=== PATIENT | female | born 1960 | race Caucasian/White ===

== ENCOUNTER → 2017-07-26 | Outpatient (CLI) | payer BC ==
[2016-12-26 11:10] VITALS: BP 122/77
[~2017-07-26] MED LIST: ALBU8.5H8 INH; CYCL-331 PO; CYCL5TAB PO; GABA-586 PO; HYDR-971 PO; IBUP200T43 PO; IBUP800T19 PO; PRED50TA PO
--- NOTE | 2017-07-26 11:16 | RAD ---
Chest, 2 views, 07/26/2017: History: Dry cough, smoking history Comparison is made to a study from 12/26/2016. The heart size and pulmonary vascularity are normal. There is a calcified granuloma in the right base. No pulmonary infiltrate is seen. There is no evidence of pleural fluid. IMPRESSION: No acute cardiopulmonary abnormality is detected.
== END | disposition home or self-care (01) ==
LOC: DXRADRC 11:03
PROVIDERS: ATTEND Nurse Practitioner Family
DX: J84.10 Pulmonary fibrosis, unspecified (principal); F17.200 Nicotine dependence, unspecified, uncomplicated
CPT/HCPCS: 71020

== ENCOUNTER → 2018-10-24 | Outpatient (CLI) | payer BC ==
[2016-12-26 11:10] VITALS: BP 122/77
[~2018-10-24] MED LIST changes: +ALBU2.5V8 INH; -ALBU8.5H8 INH; +HYDR-3165 PO; -HYDR-971 PO; -IBUP200T43 PO; +IBUP200T44 PO
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
== END | disposition home or self-care (01) ==
LOC: PMG 12:25
PROVIDERS: ATTEND Physician Assistant
DX: M25.571 Pain in right ankle and joints of right foot (principal)
CPT/HCPCS: 73600

== ENCOUNTER → 2018-11-05 | Outpatient (CLI) | payer BC ==
[2016-12-26 11:10] VITALS: BP 122/77
--- NOTE | 2018-11-10 09:44 | RAD ---
DATE: 11/05/2018 11:00 AM EXAM: DIGITAL SCREEN BILAT W/CAD HISTORY: routine screening evaluation. COMPARISON: 11/28/2016 Bilateral full field craniocaudal and mediolateral oblique images were obtained using digital technique. This study was interpreted with the benefit of Computerized Aided Detection (CAD ). Breast Density: The breast parenchyma shows scattered fibroglandular densities. Breast parenchyma level B. FINDINGS: Benign calcifications are present. The parenchymal pattern appears stable. No suspicious masses, microcalcifications or architectural distortion is present to suggest malignancy in either breast. The visualized axillae are unremarkable. IMPRESSION: No mammographic evidence of malignancy. BI-RADS CATEGORY: 2 BENIGN FINDING(S) RECOMMENDED FOLLOW-UP: 12M 12 MONTH FOLLOW-UP Annual screening mammography is recommended, unless clinically indicated sooner based on symptoms or change in physical exam. PQRS compliance statement: Patient information was entered into a reminder system with a target due date 11/05/2019 for the next mammogram. Mammography is a sensitive method for finding small breast cancers, but it does not detect them all and is not a substitute for careful clinical examination. A negative mammogram does not negate a clinically suspicious finding and should not result in delay in biopsying a clinically suspicious abnormality. "Our facility is accredited by the [employer] Mammography Program." MTDD
== END | disposition home or self-care (01) ==
LOC: MAMMO 08:55
PROVIDERS: ATTEND Physician Assistant
DX: Z12.31 Encounter for screening mammogram for malignant neoplasm of breast (principal)
CPT/HCPCS: 77067

== ENCOUNTER → 2018-11-14 | Outpatient (CLI) | payer BC ==
[2016-12-26 11:10] VITALS: BP 122/77
--- NOTE | 2018-11-14 14:00 | RAD ---
EXAM: Chest, 2 views. HISTORY: Emphysema. Cough. Chest pain. COMPARISON: 07/26/2017 FINDINGS: 2 views of chest are obtained. There is no infiltrate, pleural effusion or pneumothorax. The heart is normal in size. There is a stable focal opacity overlying the right upper lobe likely due to pleural-parenchymal scarring. There is a calcified granuloma within the right lower lobe. There is emphysema. IMPRESSION: No acute pulmonary finding Electronically signed by: Rosie Hopkins MD (11/14/2018 1:57 PM) [place] [id number]
== END | disposition home or self-care (01) ==
LOC: PMG 11:03
PROVIDERS: ATTEND Physician Assistant
DX: J43.8 Other emphysema (principal); J84.10 Pulmonary fibrosis, unspecified; R91.8 Other nonspecific abnormal finding of lung field; F17.210 Nicotine dependence, cigarettes, uncomplicated
CPT/HCPCS: 71046

== ENCOUNTER → 2019-07-29 | Outpatient (CLI) | payer BC ==
[2016-12-26 11:10] VITALS: BP 122/77
--- NOTE | 2019-07-29 13:05 | RAD ---
EXAM: Chest, 2 views. HISTORY: CBD. Swelling under both breasts. COMPARISON: 11/14/2018 FINDINGS: 2 views of the chest are obtained. There is no infiltrate, pleural effusion or pneumothorax. The heart is normal in size. There are few calcified granulomas. IMPRESSION: No acute pulmonary finding. Electronically signed by: Rosie Hopkins MD (07/29/2019 1:02 PM) [place] [id number]
== END | disposition home or self-care (01) ==
LOC: PMG 11:21
PROVIDERS: ATTEND Registered Nurse
DX: J44.9 Chronic obstructive pulmonary disease, unspecified (principal); R07.81 Pleurodynia; N64.59 Other signs and symptoms in breast; Z72.0 Tobacco use
CPT/HCPCS: 71046

== ENCOUNTER → 2019-08-31 | Outpatient (CLI) | payer BC ==
[2016-12-26 11:10] VITALS: BP 122/77
--- NOTE | 2019-09-01 13:26 | RAD ---
Supine and upright abdomen. HISTORY: Abdominal pain Supine and upright views were taken of the abdomen. There is no free air on the upright view or abnormal air-fluid levels. Visualized lung bases are clear. Patient's had a cholecystectomy. Stomach is mildly distended. There is not evidence of a small bowel obstruction. There are no abnormal calcifications. There is slight scoliosis. There are multiple phleboliths in the pelvis. IMPRESSION: 1. Mild gastric distention. 2. No bowel obstruction or other acute finding noted in the abdomen or pelvis. Electronically signed by: David Hay MD (09/01/2019 1:23 PM) [id number]
== END | disposition home or self-care (01) ==
LOC: RAD 17:17
PROVIDERS: ATTEND Registered Nurse
DX: K31.89 Other diseases of stomach and duodenum (principal); M41.86 Other forms of scoliosis, lumbar region; I87.8 Other specified disorders of veins; Z90.49 Acquired absence of other specified parts of digestive tract
CPT/HCPCS: 74019

== ENCOUNTER → 2020-06-24 | Outpatient (CLI) | payer OTHER, BC ==
[2016-12-26 11:10] VITALS: BP 122/77
--- NOTE | 2020-06-24 11:45 | RAD ---
EXAMINATION: CHEST PA LATERAL CLINICAL HISTORY: Reason: COUGH / Spl. Instructions: / History: EXAM DATE/TIME: 06/24/2020 12:00 AM COMPARISON: 07/29/2019 FINDINGS: Lines, tubes, and devices: None. Cardiomediastinal silhouette: Within normal limits. Lungs and pleura: No evidence of focal airspace consolidation or pleural effusion. Pulmonary vasculature unremarkable. Bones and soft tissues: Degenerative changes of the thoracic spine. IMPRESSION: No evidence of acute cardiopulmonary abnormality or significant interval change. Electronically signed by: Jcarlos Simon DO (06/24/2020 11:43 AM) [id number]
== END | disposition home or self-care (01) ==
LOC: DXRAD 10:00
PROVIDERS: ATTEND Family Medicine
DX: J44.9 Chronic obstructive pulmonary disease, unspecified (principal); M47.814 Spondylosis without myelopathy or radiculopathy, thoracic region
CPT/HCPCS: 71046

== ENCOUNTER → 2020-09-13 | Outpatient (CLI) | payer BC ==
[2016-12-26 11:10] VITALS: BP 122/77
[~2020-09-13] MED LIST changes: +REGADENOSON 0.4 MG/5 ML DISP.SYRIN. IV ONE
--- NOTE | 2020-09-13 12:10 | RAD ---
MR#: [id number] Date of Study: 09/13/2020 Ordering Physician: LUCERO CEJA, Referring Physician: PETRA MENDOZA Tech: RT Siri MorenoR) (N) APPROVED REPORT Test Type: Pharmacological Stress Nurse/Tech: RT Tiffanie (Marco A) (N) Test Indications: chest pain and left arm numbness Cardiac History: none Medications: see EHR Medical History: Asthma, COPD, smoker 45 years Resting ECG: SR/ST Resting Heart Rate: 78 bpm Resting Blood Pressure: 135/79mmHg Pretest Chest Pain: None Nurse/Tech Notes Consent: The procedure was explained to the patient in lay terms. Informed consent was witnessed. Herberth eout was entered into [employer]. History and Stress Test performed by RT Leobardo Moreno) (N) Pharm. Details Pharmacologic stress testing was performed using 0.4mg per 5ml of regadenoson given intravenously ove r 7-10 seconds. POST EXERCISE Reason for Termination: Infusion complete Max HR: 114 bpm Max Blood Pressure: 156/83mmHg INTERPRETATION Stress EKG Conclusion: No acute changes were noted. Imaging Protocol IMAGE PROTOCOL: Rest Tc-99m/stress Tc-99m 1 day Rest: Stress: Viability: Radiopharm.Tc99m [id number] Sestamibi Dose10.6mCi 32.5mCi Duration 15min. 10min. Img Date 09/13/2020 09/13/2020 Inj-Img [id number]. 60min. Rest Admin Site:IV - Right AntecubitalAdministrator: RT Tiffanie (Marco A)(N) Stress Admin Site: IV - Right AntecubitalAdministrator: RT Leobardo Moreno)(N) STRESS DATA End Diast. Vol.66.0mlAv. Heart Rate90.0bpm End Syst. Vol.7.0mlCO Index BSA0.0L/min Myocardial Ahlp499.0gEject. Ykzzmxra30.0% Stress Rates Pk. Fill Rate4.83EDV/secLVtime Pk. Fill 90.12msec Pk. Empty Rate4.70ESV/secLVtime Pk. Jpvma647.47msec 1/3 Pk. Fill3.03EDV/sec Stress Scores Regional WT1.00Summed WT6.00 Regional WM0.00Summed WM0.00 The rest and stress images show normal perfusion, normal contraction and thickening. LV Perf. Quant 17 Seg. SSS0.00 17 Seg. SRS3.00 17 Seg. SDS0.00 Stress Defect Extent (% LAD)0.00Rest Defect Extent (% LAD)8.10Rev. Defect Extent (% LAD)0.00 Stress Defect Extent (% LCX) 0.00Rest Defect Extent (% LCX)0.00Rev. Defect Extent (% LCX)0.00 Stress Defect Extent (% RCA)0.00Rest Defect Extent (% RCA)0.00Rev. Defect Extent (% RCA)0.00 Stress Defect Extent (% HORTENCIA)0.00Rest Defect Extent (% HORTENCIA)4.30Rev. Defect Extent (% HORTENCIA)0.00 Other Information Quality:Average Risk Assessment: Low Risk Conclusion 1. No evidence of EKG changes with stress testing. 2. Normal perfusion at stress/rest. 3. Low risk study. 4. EF > 60%. Signed by : Silverio Kay, Electronically Approved : 09/13/2020 12:10:03
== END ==
LOC: NM 07:57
PROVIDERS: ATTEND Internal Medicine Cardiovascular Disease
DX: R07.9 Chest pain, unspecified (principal)
CPT/HCPCS: 78452; 93017; A9500; J2785

== ENCOUNTER 2021-01-10 10:19 | Emergency (ER) | payer BC, OTHER ==
[~2021-01-10] VITALS: Ht 162.6 cm; Wt 74.8 kg
[~2021-01-10 10:19] MED LIST changes: -REGADENOSON 0.4 MG/5 ML DISP.SYRIN. IV ONE
--- NOTE | 2021-01-10 11:23 | PHYS DOC ---
Past History Past Medical History: Anxiety, COPD Past Surgical History: , Other Alcohol Use: None Drug Use: None General Adult EDM: Chief Complaint: SORE THROAT HPI: HPI: Patient is a 60-year-old female coming in for inability to swallow. Patient states that yesterday she ate a burrito had vomited afterwards. States she had a large volume of emesis and a chunk of something that she was unable to identify. Patient has a history of esophageal strictures and post dilation last year by Dr. Arnold. Patient has no fall but this morning has a sore throat and is unable to swallow her secretions. Review of Systems: Review of Systems: All other systems within normal limits except for as noted in the HPI Allergies: Allergies: Allergies Coded Allergies Type Severity Reaction Last Updated Verified No Known Drug Allergies 10/10/14 No Physical Exam: PE: Constitutional: Well developed, well nourished, no acute distress, non-toxic appearance. [] HENT: Normocephalic, atraumatic, bilateral external ears normal, nose normal. [] Eyes: PERRLA, conjunctiva normal, no discharge. [] Neck: No rigidity, supple, no stridor. [] Cardiovascular: Regular rate and rhythm, brisk cap refill [] Lungs & Thorax: Non labored symmetric respirations, no tachypnea or respiratory distress [] Abdomen: Soft, nondistended. Skin: Warm, dry, no erythema, no rash. [] Back: Unremarkable Extremities: No deformities, range of motion grossly intact, no lower extremity edema [] Neurologic: Alert and oriented X 3, no focal deficits noted. [] Psychologic: Affect normal, judgement normal, mood normal. [] Current Patient Data: Vital Signs: Vital Signs Date Time Temp Pulse Resp B/P (MAP) Pulse Ox O2 Delivery O2 Flow Rate FiO2 01/10/21 10:34 97.6 96 16 144/93 (110) 99 Room Air Radiology/Procedures: Radiology/Procedures: CT scan of the neck and chest with contrast 01/10/2021 CLINICAL HISTORY: Difficulty swallowing. TECHNIQUE: After the intravenous administration of 75 cc of Omnipaque 350, contiguous, 3 mm axial sections were obtained through the neck and chest. One or more of the following individualized dose reduction techniques were utilized for this study: 1. Automated exposure control. 2. Adjustment of the mA and/or kV according to patient size. 3. Use of iterative reconstruction technique. FINDINGS: The mucosal structures of the nasopharynx, oral pharynx, hypopharynx and larynx are within normal limits. The parotid and submandibular glands are within normal limits. The thyroid gland is within normal limits. Reactive lymph nodes are seen surrounding the submandibular glands, right greater than left and within the submental region. These measure 5 mm to 1.2 cm in size. No abnormal soft tissue mass or fluid collection is noted. Mild atheromatous/atherosclerotic plaque formation seen involving both carotid bifurcations. Small calcified right hilar and mediastinal lymph nodes are seen which measure 3 mm to 1 cm in size. No hilar, mediastinal or axillary lymphadenopathy is seen. The thoracic aorta tapers normally. The heart is normal in size. Mild emphysematous changes are seen scattered throughout both lungs. Dependent subsegmental atelectasis is seen involving both lower lobes. No area of consolidation is seen. No pneumothorax or pleural effusion is noted. A 6 mm calcified granuloma is seen involving the right lower lobe. Images through the upper abdomen demonstrate decreased attenuation of the liver parenchyma consistent with fatty infiltration. There is a small sliding hiatal hernia. Degenerative changes are seen involving the uncovertebral and facet joints throughout the cervical disc spaces degenerative changes are seen involving the thoracic spine. IMPRESSION: Small sliding hiatal hernia. No acute abnormality is seen. [][] Heart Score: C/O Chest Pain: No Risk Factors: Risk Factors: DM, Current or recent (<one month) smoker, HTN, HLP, family history of CAD, obesity. Risk Scores: Score 0 - 3: 2.5% MACE over next 6 weeks - Discharge Home Score 4 - 6: 20.3% MACE over next 6 weeks - Admit for Clinical Observation Score 7 - 10: 72.7% MACE over next 6 weeks - Early Invasive Strategies Course & Med Decision Making: Course & Med Decision Making Pertinent Labs and Imaging studies reviewed. (See chart for details) Patient tolerating p.o. Discussed hiatal hernia, patient states she knew she had it. Discussed avoiding steak or chunks of meat and and taking smooth consistency foods and follow-up with her GI doctor. [] Abhijit Disclaimer: Abhijit Disclaimer: This electronic medical record was generated, in whole or in part, using a voice recognition dictation system. Departure Departure: Impression: Primary Impression: Sliding hiatal hernia Disposition: 01 DC HOME SELF CARE/HOMELESS Condition: STABLE Referrals: ESTEFANIA PRESCOTT MD (PCP) REMA OGDEN MD Patient Instructions: Diet - Soft Additional Instructions: [id number], [place] [email or web address] YVON REINA MD Jan 10, 2021 11:23
[2021-01-10] MEDS ORDERED: IOHEXOL 300 MG/ML 75 ML VIAL. IV ONE (11:30)
[2021-01-10 12:04] LABS: BASO # 0.1 x10^3/uL (0.0-0.2); BASO % 1 % (0-3); EOS # 0.1 x10^3/uL (0.0-0.7); EOS % 1 % (0-3); HEMATOCRIT 44.1 % (36.0-47.0); HEMOGLOBIN 14.7 g/dL (12.0-15.5); LYMPH # 2.9 x10^3/uL (1.0-4.8); LYMPH % 28 % (24-48); MEAN CORPUSCULAR HEMOGLOBIN 29 pg (25-35); MEAN CORPUSCULAR HGB CONC 33 g/dL (31-37); MEAN CORPUSCULAR VOLUME 86 fL (79-100); MONO # 0.8 x10^3/uL (0.0-1.1); MONO % 8 % (0-9); NEUT # 6.5 x10^3uL (1.8-7.7); NEUT % 63 % (31-73); PLATELET COUNT 383 x10^3/uL (140-400); RED BLOOD COUNT 5.13 x10^6/uL (3.50-5.40); RED CELL DISTRIBUTION WIDTH 13.8 % (11.5-14.5); WHITE BLOOD COUNT 10.4 x10^3/uL (4.0-11.0)
[2021-01-10 12:13] LABS: CREATININE 0.8 mg/dL (0.6-1.0); GFR 73.4
[2021-01-10 12:19] LABS: ALBUMIN 3.6 g/dL (3.4-5.0); ALBUMIN/GLOBULIN RATIO 0.9 (1.0-1.7); TOTAL BILIRUBIN 0.3 mg/dL (0.2-1.0); TOTAL PROTEIN 7.4 g/dL (6.4-8.2)
--- NOTE | 2021-01-10 13:12 | RAD ---
CT scan of the neck and chest with contrast 01/10/2021 CLINICAL HISTORY: Difficulty swallowing. TECHNIQUE: After the intravenous administration of 75 cc of Omnipaque 350, contiguous, 3 mm axial sec tions were obtained through the neck and chest. One or more of the following individualized dose reduction techniques were utilized for this study: 1. Automated exposure control. 2. Adjustment of the mA and/or kV according to patient size. 3. Use of iterative reconstruction technique. FINDINGS: The mucosal structures of the nasopharynx, oral pharynx, hypopharynx and larynx are within normal limits. The parotid and submandibular glands are within normal limits. The thyroid gland is within normal murphy its. Reactive lymph nodes are seen surrounding the submandibular glands, right greater than left and within the submental region. These measure 5 mm to 1.2 cm in size. No abnormal soft tissue mass or fl uid collection is noted. Mild atheromatous/atherosclerotic plaque formation seen involving both carot id bifurcations. Small calcified right hilar and mediastinal lymph nodes are seen which measure 3 mm to 1 cm in size. No hilar, mediastinal or axillary lymphadenopathy is seen. The thoracic aorta tapers normally. The he art is normal in size. Mild emphysematous changes are seen scattered throughout both lungs. Dependent subsegmental atelectas is is seen involving both lower lobes. No area of consolidation is seen. No pneumothorax or pleural e ffusion is noted. A 6 mm calcified granuloma is seen involving the right lower lobe. Images through the upper abdomen demonstrate decreased attenuation of the liver parenchyma consistent with fatty infiltration. There is a small sliding hiatal hernia. Degenerative changes are seen involving the uncovertebral and facet joints throughout the cervical di sc spaces degenerative changes are seen involving the thoracic spine. IMPRESSION: Small sliding hiatal hernia. No acute abnormality is seen. Electronically signed by: Moisés Major MD (01/10/2021 1:09 PM) [id number]
[2021-01-10 13:23] VITALS: BP 137/87
== END 2021-01-10 14:15 | disposition home or self-care (01) ==
LOC: ER 10:19
DX: K44.9 Diaphragmatic hernia without obstruction or gangrene (principal); F41.9 Anxiety disorder, unspecified; J44.9 Chronic obstructive pulmonary disease, unspecified; Z98.890 Other specified postprocedural states
CPT/HCPCS: 36415; 71260; 72132; 80053; 85025; 99285; Q9967

== ENCOUNTER → 2021-02-08 | Outpatient (CLI) | payer BC, OTHER ==
[2021-01-10 13:23] VITALS: BP 137/87
--- NOTE | 2021-02-08 16:06 | RAD ---
Examination: CT chest without contrast HISTORY: Follow-up lung nodule COMPARISON: 12/26/2016 TECHNIQUE: Axial CT images of chest were performed without contrast. Coronal and sagittal reformats a re performed. Exposure: One or more of the following individualized dose reduction techniques were utilized for th is examination: 1. Automated exposure control 2. Adjustment of the mA and/or kV according to patien t size 3. Use of iterative reconstruction technique FINDINGS: The visualized thyroid gland grossly appears unremarkable. The central airways are patent. The heart size grossly appears unremarkable. No evidence of significant mediastinal lymphadenopathy. Mild bilat eral lung emphysematous changes. 3 mm nodule left lower lobe of the lung. She visualized noncontraste d liver, adrenals grossly appears unremarkable. Cholecystectomy changes identified. Mild degenerative changes thoracic spine. IMPRESSION: 1. 3 mm nodule left lower lobe of the lung. Follow-up per Fleischner Society guidelines with a follo w-up CT in 6-12 months. 2. Mild bilateral lung emphysematous changes. Electronically signed by: Ben Chun MD (02/08/2021 4:04 PM) [id number]
== END ==
LOC: CT 11:31
PROVIDERS: ATTEND Internal Medicine Pulmonary Disease
DX: R91.1 Solitary pulmonary nodule (principal); J43.9 Emphysema, unspecified
CPT/HCPCS: 71250

== ENCOUNTER → 2021-12-05 | Emergency (ER) | payer OTHER ==
[~2021-12-05] VITALS: Ht 160 cm; Wt 63.6 kg
[~2021-12-05] MED LIST changes: -CYCL-331 PO; +CYCL10TA19 PO; +KETOROLAC 60 MG/2 ML VIAL. IM ONE; +ORPHENADRINE CITRATE 60 MG/2 ML VIAL. IM ONE
[2021-12-05 13:40] VITALS: BP 141/80
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
== END ==
LOC: ER 13:39
DX: R51.9 Headache, unspecified (principal); M54.2 Cervicalgia; G89.11 Acute pain due to trauma; R07.89 Other chest pain; J44.9 Chronic obstructive pulmonary disease, unspecified; V49.69XA Unspecified car occupant injured in collision with other motor vehicles in traffic accident, initial encounter; Y92.488 Other paved roadways as the place of occurrence of the external cause; Y93.89 Activity, other specified; Y99.8 Other external cause status
CPT/HCPCS: 71045; 96372; 99284; J1885; J2360